=== PATIENT | male | born 1975 | race Caucasian/White ===

== ENCOUNTER → 2022-07-20 11:23 | Outpatient (BNVA) | payer BC, SELFPAY | PROVIDERS: PCP Family Medicine; Visit Provider Internal Medicine | DX: R76.8 Other specified abnormal immunological findings in serum (principal) | CPT/HCPCS: 80053; 81001; 82550; 83516; 85025; 85651; 86036; 86160; 86162; 86200; 86235; 86255; 86376; 86704; 86803; 87340 ==

== ENCOUNTER → 2022-08-31 12:27 | Outpatient (BNVA) | payer BC, SELFPAY | PROVIDERS: PCP Family Medicine; Visit Provider Internal Medicine | DX: L93.2 Other local lupus erythematosus (principal) | CPT/HCPCS: 81001 ==

== ENCOUNTER → 2022-12-18 14:55 | Outpatient (BNVA) | payer BC, SELFPAY | PROVIDERS: PCP Family Medicine; Visit Provider Internal Medicine | DX: L93.2 Other local lupus erythematosus (principal); R76.8 Other specified abnormal immunological findings in serum; R31.9 Hematuria, unspecified | CPT/HCPCS: 80053; 81001; 85025; 85651; 86140 ==

== ENCOUNTER → 2024-05-20 11:57 | Outpatient (BNVA) | payer OTHER, SELFPAY | PROVIDERS: PCP Family Medicine; Visit Provider Internal Medicine Rheumatology | DX: L93.2 Other local lupus erythematosus (principal); Z79.899 Other long term (current) drug therapy | CPT/HCPCS: 36415; 80076; 82565; 85025; 85651; 86140 ==